=== PATIENT | male | born 1945 | race Caucasian/White ===

== ENCOUNTER 2016-11-19 19:57 | Emergency (ER) | payer OTHER ==
[~2016-11-19] VITALS: Ht 175.3 cm; Wt 93.3 kg
[~2016-11-19 19:57] MED LIST: ASPIR 8181 M1 PO; COCONUT OIL1000 MG PO; COQ-10100 MG PO; COUMADIN,JANTOVE1 MG PO; CYANOCOBALAM1000 MCG PO; DONEPEZIL HCL10 MG PO; ENDOCET 5-3251 EACH PO; FISH OIL CONC1 EACH PO; Feosol PO; Omega III EPA + DHA PO; OxyCONTIN PO; THERAGRAN1 TABLET PO; Zocor PO
[2016-11-19 21:40] VITALS: BP 132/62
== END 2016-11-19 21:43 | disposition home or self-care (01) ==
LOC: RME 19:57 → EME 19:57 → RME 21:43
DX: S06.9X9A Unspecified intracranial injury with loss of consciousness of unspecified duration, initial encounter (principal); S16.1XXA Strain of muscle, fascia and tendon at neck level, initial encounter; W18.30XA Fall on same level, unspecified, initial encounter; Y92.008 Other place in unspecified non-institutional (private) residence as the place of occurrence of the external cause; Z95.1 Presence of aortocoronary bypass graft; Z79.82 Long term (current) use of aspirin; Z87.891 Personal history of nicotine dependence
CPT/HCPCS: 70450; 72125; 99281; 99283

== ENCOUNTER → 2017-06-21 | Outpatient (CLI) | payer MEDICARE, OTHER | END | disposition home or self-care (01) | LOC: CDC 08:32 | DX: I10 Essential (primary) hypertension (principal); R19.4 Change in bowel habit; R00.1 Bradycardia, unspecified; R94.31 Abnormal electrocardiogram [ECG] [EKG] | CPT/HCPCS: 93000 ==

== ENCOUNTER 2017-08-22 08:24 | Emergency (ER) | payer OTHER ==
[~2017-08-22] VITALS: Ht 175.3 cm; Wt 92.6 kg
[2017-08-22 09:29] LABS: ADD MIUA? NO; BILIRUBIN NEGATIVE; BLOOD NEGATIVE; COLOR YELLOW ((YELLOW)); GLUCOSE (STRIP) NEGATIVE; KETONES NEGATIVE; LEUKOCYTES NEGATIVE; NITRITE NEGATIVE; PROTEIN (STRIP) 30; SPECIFIC GRAVITY 1.028 (1.000-1.030); UCUL ADDED? NO
[2017-08-22 09:45] LABS: EOSINOPHIL COUNT 0.1 K/uL (0-0.3); HEMATOCRIT 47.5 % (38.0-50.0); IMMATURE GRANULOCYTE (%) 0.2 % (0.0-0.7); INSTRUMENT ABS NEUTROPHIL CT 3.1 K/uL; LYMPHOCYTE COUNT 1.3 K/uL (1.0-2.8); MCH 29.6 PG (29.0-34.0); MCHC 33.5 G/DL (30.0-36.0); MCV 88.5 FL (86-99); MEAN PLAT.VOLUME 9.6 uM^3 (9.0-12.4); MONOCYTE (%) 11.5 % (3-12); MONOCYTE COUNT 0.6 K/uL (0-0.8); NEUTROPHIL (%) 59.9 % (45-76); NEUTROPHIL COUNT 3.1 K/uL (1.8-6.4); PLATELET COUNT 182 K/uL (156-360); RBC DIS.WIDTH-CV 12.6 % (11.8-14.6); RBC DIS.WIDTH-SD 41.1 % (39-53); RED BLOOD COUNT 5.37 M/uL (4.00-5.50); WHITE BLOOD COUNT 5.1 K/uL (4.1-10.2)
[2017-08-22 09:54] LABS: CHLORIDE 106 mEq/L (99-109); SODIUM 140 mEq/L (136-147)
[2017-08-22 09:55] LABS: GLUCOSE 104 mg/dL (70-99)
[2017-08-22 09:57] LABS: ANION GAP 9 MEQ/L (2-14)
[2017-08-22 09:59] LABS: GFR ESTIMATE (CALCULATED) > 59 mL/min/
[2017-08-22 10:00] LABS: UREA NITROGEN (BUN) 17 mg/dL (9-23)
[2017-08-22 11:14] VITALS: BP 121/67
== END 2017-08-22 11:16 | disposition home or self-care (01) ==
LOC: EME 08:24
PROVIDERS: Emergency Medicine
DX: S39.012A Strain of muscle, fascia and tendon of lower back, initial encounter (principal); E86.0 Dehydration; F03.90 Unspecified dementia, unspecified severity, without behavioral disturbance, psychotic disturbance, mood disturbance, and anxiety; E78.5 Hyperlipidemia, unspecified; Z95.1 Presence of aortocoronary bypass graft; Z87.891 Personal history of nicotine dependence; Z79.82 Long term (current) use of aspirin
CPT/HCPCS: 80048; 81003; 83605; 85025; 87040; 99281; 99285

== ENCOUNTER 2017-10-25 11:19 | Emergency (ER) | payer OTHER ==
[~2017-10-25] VITALS: Ht 175.3 cm; Wt 91.9 kg
[2017-10-25 12:12] LABS: ADD MIUA? YES; BILIRUBIN NEGATIVE; BLOOD NEGATIVE; COLOR YELLOW ((YELLOW)); GLUCOSE (STRIP) NEGATIVE; KETONES NEGATIVE; LEUKOCYTES TRACE; NITRITE NEGATIVE; PROTEIN (STRIP) 30; SPECIFIC GRAVITY 1.029 (1.000-1.030)
[2017-10-25 12:18] LABS: BACTERIA RARE /HPF; EPITHELIAL CELLS NONE SEEN /HPF; MUCUS 1+ /LPF; RED BLOOD CELLS 0-5 /HPF (0-5); UCUL ADDED? YES
[2017-10-25 12:42] LABS: MCH 29.9 PG (29.0-34.0); MCHC 34.3 G/DL (30.0-36.0); MCV 87.4 FL (86-99); MEAN PLAT.VOLUME 9.3 uM^3 (9.0-12.4); PLATELET COUNT 213 K/uL (156-360); RBC DIS.WIDTH-CV 12.6 % (11.8-14.6); RED BLOOD COUNT 5.38 M/uL (4.00-5.50); WHITE BLOOD COUNT 8.2 K/uL (4.1-10.2)
[2017-10-25 12:53] LABS: CHLORIDE 110 mEq/L (99-109); POTASSIUM 3.7 mEq/L (3.7-5.4); SODIUM 143 mEq/L (136-147)
[2017-10-25 12:56] LABS: GLUCOSE 96 mg/dL (70-99)
[2017-10-25 12:57] LABS: ANION GAP 11 MEQ/L (2-14)
[2017-10-25 12:58] LABS: TOTAL BILIRUBIN 0.7 mg/dL (0.0-1.0)
[2017-10-25 12:59] LABS: ALKALINE PHOSPHATASE 63 IU/L (3-129); GFR ESTIMATE (CALCULATED) > 59 mL/min/ (58.99-99999)
[2017-10-25 13:00] LABS: UREA NITROGEN (BUN) 16 mg/dL (9-23)
[2017-10-25] MEDS ORDERED: KEFLEX500 MG PO (17:04)
[2017-10-25 17:54] VITALS: BP 127/84
== END 2017-10-25 17:56 | disposition home or self-care (01) ==
LOC: EME 11:19
DX: K59.00 Constipation, unspecified (principal); N39.0 Urinary tract infection, site not specified; M79.605 Pain in left leg; N20.0 Calculus of kidney; K57.30 Diverticulosis of large intestine without perforation or abscess without bleeding; K42.9 Umbilical hernia without obstruction or gangrene; I45.10 Unspecified right bundle-branch block; F03.90 Unspecified dementia, unspecified severity, without behavioral disturbance, psychotic disturbance, mood disturbance, and anxiety; Z95.1 Presence of aortocoronary bypass graft; Z79.82 Long term (current) use of aspirin; Z87.891 Personal history of nicotine dependence
CPT/HCPCS: 74176; 80053; 81003; 85027; 87086; 93005

== ENCOUNTER 2017-12-17 12:58 | Emergency (ER) | payer OTHER ==
[~2017-12-17] VITALS: Ht 180.3 cm; Wt 103.6 kg
[~2017-12-17 12:58] MED LIST changes: +KEFLEX500 MG PO
[2017-12-17 13:27] LABS: BASOPHIL (%) 0.7 % (0-1); BASOPHIL COUNT 0.1 K/uL (0-0.1); EOSINOPHIL (%) 0.9 % (0-5); EOSINOPHIL COUNT 0.1 K/uL (0-0.3); HEMATOCRIT 46.3 % (38.0-50.0); HEMOGLOBIN 16.2 G/DL (12.5-16.6); IMMATURE GRANULOCYTE (%) 0.3 % (0.0-0.7); LYMPHOCYTE (%) 23.2 % (15-42); LYMPHOCYTE COUNT 1.8 K/uL (1.0-2.8); MCH 30.2 PG (29.0-34.0); MCV 86.2 FL (86-99); MONOCYTE COUNT 0.7 K/uL (0-0.8); NEUTROPHIL (%) 65.9 % (45-76); NEUTROPHIL COUNT 5.1 K/uL (1.8-6.4); PLATELET COUNT 216 K/uL (156-360); RBC DIS.WIDTH-CV 12.9 % (11.8-14.6); RBC DIS.WIDTH-SD 40.4 % (39-53); RED BLOOD COUNT 5.37 M/uL (4.00-5.50); WHITE BLOOD COUNT 7.7 K/uL (4.1-10.2)
[2017-12-17 13:38] LABS: CHLORIDE 111 mEq/L (99-109); POTASSIUM 3.6 mEq/L (3.7-5.4); SODIUM 142 mEq/L (136-147)
[2017-12-17 13:40] LABS: GLUCOSE 113 mg/dL (70-99)
[2017-12-17 13:43] LABS: SERUM ETHYL ALCOHOL < 10 mg/dL
[2017-12-17 13:44] LABS: CREATININE 0.8 mg/dL (0.6-1.3); GFR ESTIMATE (CALCULATED) > 59 mL/min/ (58.99-99999)
[2017-12-17 13:45] LABS: UREA NITROGEN (BUN) 16 mg/dL (9-23)
[2017-12-17 16:25] VITALS: BP 103/60
== END 2017-12-17 16:25 | disposition home or self-care (01) ==
LOC: EME 12:58
PROVIDERS: Emergency Medicine
DX: F03.91 Unspecified dementia, unspecified severity, with behavioral disturbance (principal); E78.5 Hyperlipidemia, unspecified; R41.3 Other amnesia; W25.XXXA Contact with sharp glass, initial encounter; Z79.82 Long term (current) use of aspirin; Z87.891 Personal history of nicotine dependence; Z95.1 Presence of aortocoronary bypass graft; Z96.651 Presence of right artificial knee joint; Z88.8 Allergy status to other drugs, medicaments and biological substances
CPT/HCPCS: 73130; 80048; 81003; 85025; 90839; 99281; 99284; G0480; J1630; J2060

== ENCOUNTER 2018-01-15 07:01 | Emergency (ER) | payer OTHER ==
[~2018-01-15] VITALS: Ht 185.4 cm; Wt 89.2 kg
[2018-01-15 08:03] LABS: HEMATOCRIT 50.7 % (38.0-50.0); HEMOGLOBIN 17.3 G/DL (12.5-16.6); MCH 29.9 PG (29.0-34.0); MCHC 34.1 G/DL (30.0-36.0); MCV 87.7 FL (86-99); PLATELET COUNT 235 K/uL (156-360); RBC DIS.WIDTH-SD 41.8 % (39-53); RED BLOOD COUNT 5.78 M/uL (4.00-5.50); WHITE BLOOD COUNT 14.7 K/uL (4.1-10.2)
[2018-01-15 08:29] LABS: ALBUMIN 4.6 G/DL (3.2-4.8); ALKALINE PHOSPHATASE 73 IU/L (3-129); ALT (GPT) 22 IU/L (3-49); AST (GOT) 26 IU/L (2-34); CHLORIDE 106 MEQ/L (99-109); CREATININE 1.2 MG/DL (0.6-1.3); GFR ESTIMATE (CALCULATED) > 59 mL/min/ (58.99-99999); GLUCOSE 133 mg/dL (70-99); SODIUM 147 MEQ/L (136-147); TOTAL BILIRUBIN 1.2 MG/DL (0.0-1.0); TOTAL PROTEIN 8.4 G/DL (6.4-8.3); UREA NITROGEN (BUN) 46 mg/dL (9-23)
[2018-01-15 08:32] LABS: TROP-I INTERPRETATION NEGATIVE; TROPONIN-I 0.03 ng/mL (0.0-0.30)
[2018-01-15 09:15] LABS: APPEARANCE CLEAR ((CLEAR)); BILIRUBIN NEGATIVE; BLOOD SMALL; COLOR YELLOW ((YELLOW)); GLUCOSE (STRIP) NEGATIVE; KETONES 5; LEUKOCYTES NEGATIVE; NITRITE NEGATIVE; PROTEIN (STRIP) 30; SPECIFIC GRAVITY 1.025 (1.000-1.030); UROBILINOGEN 0.2 MG/DL (0.2-1.0)
[2018-01-15 09:27] LABS: BACTERIA NONE SEEN /HPF; EPITHELIAL CELLS NONE SEEN /HPF; HYALINE CASTS 0-5 /LPF; MUCUS TRACE /LPF; UCUL ADDED? NO; WHITE BLOOD CELLS 0-5 /HPF (0-5)
[2018-01-15 11:18] LABS: TROP-I INTERPRETATION NEGATIVE; TROPONIN-I 0.03 ng/mL (0.0-0.30)
[2018-01-15 13:41] VITALS: BP 95/71
== END 2018-01-15 13:43 | disposition home or self-care (01) ==
LOC: EME → EDBD 07:01 → EME 07:01
PROVIDERS: Nurse Practitioner Family
DX: F03.90 Unspecified dementia, unspecified severity, without behavioral disturbance, psychotic disturbance, mood disturbance, and anxiety (principal); R29.6 Repeated falls; D72.829 Elevated white blood cell count, unspecified; R50.9 Fever, unspecified; M54.2 Cervicalgia; S00.03XA Contusion of scalp, initial encounter; W19.XXXA Unspecified fall, initial encounter; N20.0 Calculus of kidney; I45.10 Unspecified right bundle-branch block; Z95.1 Presence of aortocoronary bypass graft; Z79.82 Long term (current) use of aspirin; Z87.891 Personal history of nicotine dependence
CPT/HCPCS: 70450; 71045; 72040; 74018; 80053; 81003; 84484; 85027; 93005; 99281; 99284; J2060; J7030